=== PATIENT | female | born 1985 | race Caucasian/White ===

== ENCOUNTER 2019-05-24 20:36 | Emergency (ER) | payer BC ==
--- NOTE | 2019-05-24 23:32 | EDM.PDOC ---
ED HPI GENERAL MEDICAL PROBLEM - General Chief Complaint: Gastrointestinal Problem Stated Complaint: vomiting Time Seen by Provider: 05/24/19 23:10 Source of Information: Reports: Patient, Family History Limitations: Reports: No Limitations - History of Present Illness INITIAL COMMENTS - FREE TEXT/NARRATIVE: This is a 34yo F here for profuse vomiting. She notes it started while eating at about 6 pm when she started to salivate a lot then vomit. The only different foods eaten was cottage cheese and beets compared to her dad. She has had prior similar happenings without vomiting but more epigastric symptoms that are relieved by rolaids. This episode has been the worse and has not resolved with is very unlike any other episodes. Onset: Sudden Duration: Hour(s): Location: Reports: Chest, Abdomen Quality: Reports: Ache Severity: Moderate Improves with: Reports: None Worsens with: Reports: Eating Associated Symptoms: Reports: Nausea/Vomiting Past Medical History HEENT History: Reports: Other (See Below) Other HEENT History: both eyes Respiratory History: Reports: Asthma - Past Surgical History HEENT Surgical History: Reports: Laser Surgery Respiratory Surgical History: Reports: None Social & Family History - Tobacco Use Smoking Status *Q: Never Smoker Second Hand Smoke Exposure: No - Caffeine Use Caffeine Use: Reports: None - Recreational Drug Use Recreational Drug Use: No ED ROS GENERAL - Review of Systems Review Of Systems: Comprehensive ROS is negative, except as noted in HPI. ED EXAM, GENERAL - Physical Exam Exam: See Below Exam Limited By: No Limitations General Appearance: Alert, WD/WN, Mild Distress Eye Exam: Bilateral Eye: EOMI, Nystagmus, PERRL Ears: Normal External Exam Nose: Normal Inspection Throat/Mouth: Normal Inspection Head: Atraumatic, Normocephalic Neck: Normal Inspection, Supple, Non-Tender Respiratory/Chest: No Respiratory Distress, Lungs Clear Cardiovascular: Normal Peripheral Pulses, Regular Rate, Rhythm Peripheral Pulses: 2+: Dorsalis Pedis (L), Dorsalis Pedis (R) GI/Abdominal: Abnormal Bowel Sounds (hyperactive) Extremities: Normal Inspection Neurological: Alert, Oriented, CN II-XII Intact Course - Vital Signs Last Recorded V/S: Last Vital Signs Temp 35.8 C 05/24/19 22:58 Pulse 18 L 05/24/19 22:58 Resp 18 05/24/19 22:58 BP 128/67 05/24/19 22:58 Pulse Ox 100 05/24/19 22:58 - Orders/Labs/Meds Orders: Active Orders 24 hr Category Date Time Status EKG Documentation Completion [RC] ASDIRECTED Care 05/24/19 23:22 Active Labs: Laboratory Tests 05/24/19 05/24/19 Range/Units 11:35 11:35 WBC 15.9 H (4.0-11.0) K/uL RBC 4.41 (3.80-5.80) M/uL Hgb 12.1 (11.5-16.5) g/dL Hct 36.3 L (37.0-47.0) % MCV 82 (76-96) fL MCH 27.4 (27.0-32.0) pg MCHC 33.3 (31.0-35.0) g/dL RDW 14.8 (11.0-16.0) % Plt Count 352 (150-500) K/uL MPV 9.5 (6.0-10.0) fL Neut % (Auto) 67.3 (45.0-70.0) % Lymph % (Auto) 22.8 (20.0-40.0) % Wake % (Auto) 6.5 (3.0-10.0) % Eos % (Auto) 3.1 (1.0-5.0) % Baso % (Auto) 0.3 (0.0-0.5) % Neut # (Auto) 10.71 H (2.00-7.50) K/uL Lymph # (Auto) 3.62 (1.50-4.00) K/uL Wake # (Auto) 1.03 H (0.20-0.80) K/uL Eos # (Auto) 0.50 H (0.04-0.40) K/uL Baso # (Auto) 0.05 (0.02-0.10) K/uL Sodium 142 (136-145) mmol/L Potassium 3.7 (3.5-5.1) mmol/L Chloride 102 (98-107) mmol/L Carbon Dioxide 24.0 (21.0-32.0) mmol/L Anion Gap 19.7 H (5.0-15.0) mmol/L BUN 11 (8-26) mg/dL Creatinine 0.82 (0.55-1.02) mg/dL Est Cr Clr Drug Dosing TNP Estimated GFR (MDRD) > 60 (>60) MLS/MIN BUN/Creatinine Ratio 13.4 (6-25) Glucose 102 H (74-100) mg/dL Calcium 8.5 (8.5-10.1) mg/dL Total Bilirubin 0.5 (0.0-1.0) mg/dL AST 16 (15-37) U/L ALT 19 (12-78) U/L Alkaline Phosphatase 72 (46-116) U/L Troponin I 0.002 (0.000-0.060) ng/mL Total Protein 7.3 (6.4-8.2) g/dL Albumin 3.5 (3.4-5.0) g/dL Globulin 3.8 (2.2-4.2) g/dL Albumin/Globulin Ratio 0.9 (0.8-2.0) Meds: Medications Discontinued Medications Generic Name Dose Route Start Last Admin Trade Name Freq PRN Reason Stop Dose Admin Diatrizoate Meglum/Diatrizoate Sod 30 ml 05/24/19 23:45 Gastrografin 37% PO 05/25/19 00:08 . DIRECTED JUDSON Departure - Departure Time of Disposition: 00:40 Disposition: Home, Self-Care 01 Condition: Undetermined Clinical Impression: Esophageal obstruction due to food impaction - Discharge Information Instructions: Viral Gastroenteritis, Adult, [id number] Referrals: PCP,None [Primary Care Provider] - Forms: ED Department Discharge Sepsis Event Note - Evaluation Sepsis Screening Result: No Definite Risk - Focused Exam Vital Signs: Vital Signs Temp Pulse Resp BP Pulse Ox 05/24/19 22:58 35.8 C 18 L 18 128/67 100 Date Exam was Performed: 05/25/19 Time Exam was Performed: 10:30 - Problem List & Annotations (1) Esophageal obstruction due to food impaction SNOMED Code(s): 027167783 Code(s): K22.2 - ESOPHAGEAL OBSTRUCTION; T18.128A - FOOD IN ESOPHAGUS CAUSING OTHER INJURY, INITIAL ENCOUNTER Status: Acute Priority: High - Problem List Review Problem List Initiated/Reviewed/Updated: Yes - My Orders Last 24 Hours: My Active Orders 05/24/19 23:22 EKG Documentation Completion [RC] ASDIRECTED - Assessment/Plan Last 24 Hours: My Active Orders 05/24/19 23:22 EKG Documentation Completion [RC] ASDIRECTED Plan: Discussed in length on obstruction of the esophagus close to the GE junction. Discussed supportive/conservative therapy and mother and patient would like to try this overnight prior to going to a center for GI and removal as well as preventing late night driving. Patient and family counseled on the need for Endoscopy and removal if symptoms do not improve and resolve and family understands the risks of waiting for this procedure. Discussed very close monitoring and f/u in ER as needed and for further management as directed. Family have decided for [facility] if they were to go for further intervention. They will rest tonight and leave in the am if symptoms persist.
[2019-05-24] MEDS ORDERED: Diatrizoate Meglumine/Diatrizoate Sodium 37% 30 ML Bottle PO SCH (23:45)
--- NOTE | 2019-05-25 09:27 | CT ---
Date of Service: 05/24/19 Clinical Data: shortness of breath, chest pressure UNENHANCED CHEST CT: Multislice acquisition through the chest without IV contrast was performed. No priors. The lungs are clear. No pneumothorax. No pleural effusions. The heart size is normal. No pericardial effusion. No hilar or mediastinal adenopathy. There is heterogeneous soft tissue dense material within the distal esophagus just proximal to the GE junction. The esophagus proximal to this is distended. It does contain some contrast density material as well as fluid and gas. Distal impacted esophagus with obstruction is suspected. No other significant findings. IMPRESSION: Abnormal esophagus. See above. [id number] [facility]
--- NOTE | 2019-05-25 09:33 | CT ---
Date of Service: 05/24/19 Clinical Shashi: epigastric pressure UNENHANCED ABDOMEN AND PELVIC CT: Multislice acquisition through the abdomen and pelvis without IV or oral contrast was performed. No priors. Again noted is the heterogeneous soft tissue density material in the distal esophagus at the GE junction with dilatation of the esophagus proximally consistent with an impacted, obstructed distal esophagus. The liver appears normal. The gallbladder appears normal. The spleen appears normal. The pancreas appears normal. The right and left adrenals appear normal. The right and left kidneys appear normal. No nephrocalcinosis or nephrolithiasis. No hydronephrosis or hydroureter. The bladder is partially fluid-filled. It appears normal. No evidence of appendicitis. There is a moderate amount of stool present in the ascending and transverse colon. No free air. No free fluid. No dilated loops of bowel. No adenopathy. No aortic aneurysm. [id number] [facility]
== END 2019-05-25 00:50 | disposition home or self-care (01) ==
LOC: LB.ED 20:36
DX: T18.128A Food in esophagus causing other injury, initial encounter (principal); K22.2 Esophageal obstruction
CPT/HCPCS: 36415; 71250; 74150; 80053; 84484; 85025; 93005; 99284-25; Q9963

== ENCOUNTER 2019-06-15 09:53 | Day surgery (SDC) | payer BC ==
[2019-06-15] MEDS ORDERED: Sodium Chloride 0.9% 1,000 ML IV SCH (10:30)
[2019-06-15] MEDS ORDERED: Propofol 200 MG/20 ML SDV ONE (12:20)
--- NOTE | 2019-06-15 17:32 | OR ---
DATE OF OPERATION: 06/15/2019 SURGEON: Yosvany Knox MD POSTOPERATIVE DIAGNOSIS: Dysphagia. POSTOPERATIVE DIAGNOSIS: Dysphagia. PROCEDURE: EGD. ANESTHESIA: MAC. ESTIMATED BLOOD LOSS: None. COMPLICATIONS: None. INDICATION FOR THE PROCEDURE: The patient is a 34-year-old female, who several weeks ago got a piece of steak stuck in her esophagus and did resolve on its own after taking some meat tenderizer. Did not require any EGD at that time. She is here today for EGD. Also apparently had a CT scan showing a small hiatal hernia. DESCRIPTION OF PROCEDURE: Informed consent was obtained from the patient. The patient was taken to the operating room and placed on table in left lateral decubitus position. Monitored anesthesia care was administered. The Esophagogastroscope then advanced through the oral cavity and directed towards the stomach, did reach the gastric antrum. The patient was coughing and vomiting up gastric fluid, so procedure was truncated, but otherwise stomach appeared unremarkable. Her esophagus was unremarkable. She did have a small sliding hiatal hernia. Otherwise, the esophagus showed no strictures, no masses, no areas of inflammation throughout the esophagus. Esophagogastroscope then withdrawn. FINDINGS: Small hiatal hernia. No esophageal strictures or masses. RECOMMENDATIONS: If she does have persistent GERD or heartburn, would recommend starting PPI. Otherwise, would recommend small bites and chewing food well in the future. AGUSTO/JENNIFER /[id number]
== END 2019-06-15 14:00 | disposition home or self-care (01) ==
LOC: LB.SDS 09:53
PROVIDERS: ATTEND Surgery
DX: K44.9 Diaphragmatic hernia without obstruction or gangrene (principal)
CPT/HCPCS: 43239; 43246; J2704; J7030

== ENCOUNTER 2020-11-25 21:28 | Emergency (ER) | payer BC, MEDICAID ==
[~2020-11-25 21:28] MED LIST: Ciprofloxacin 500 MG Tab ONE
[2020-11-25] MEDS: GI Cocktail Oral Solution 30 ML PO ONE (21:55)
[2020-11-25] MEDS: Ketorolac 60 MG/2 ML SDV IM ONE (22:03)
--- NOTE | 2020-11-26 00:02 | ER ---
HISTORY OF PRESENT ILLNESS: A 35-year-old lady here with complaints of abdominal pain involving the epigastric area and radiating around to the right side of the upper abdomen and radiates around almost to the back area. She states it has been present for 2 or 3 days but it got worse today. She rates her pain at 9/10 or 10/10. The patient has not been nauseated. She has not been vomiting. She has not been running a fever. She has not taken any [id number] pain medication. She denies any problems with dysuria, hematuria, or diarrhea. The patient states she just thought she should come in to make sure there was nothing wrong. OBJECTIVE: GENERAL APPEARANCE: The patient is awake and alert. She appears comfortable. She is talking freely. She is not in any respiratory distress. VITAL SIGNS: Reviewed. She is afebrile. Blood pressure 134/89, O2 sats 100%, respirations 16, pulse 83. LUNGS: Clear to auscultation. CARDIAC: Heart sounds distinct without murmurs. ABDOMEN: Soft. Minimal discomfort in the upper right quadrant with palpation. There is no discomfort in the lower quadrants with palpation. Bowel sounds are present. SKIN: Warm and dry. LABORATORY DATA AND X-RAY: CBC shows a white count of 17,600, neutrophils are also elevated. CMP is mostly unremarkable. UA shows a few wbc's and occasional bacteria. CT of the abdomen and pelvis was obtained showing the gallbladder griggs are thickened consistent with cystitis without any other acute findings. DIAGNOSIS: Abdominal pain with mild cystitis found on CT. TREATMENT PLAN: The patient was given Toradol 60 mg IM and a GI cocktail 30 mL while waiting for test results. This did help with her pain. I will put her on Cipro 500 mg b.i.d. for 3 days. She is to take Tylenol alternating with ibuprofen as needed for pain control at home. Push fluids and follow up is as needed. CRS/MODL /[id number]
--- NOTE | 2020-11-26 12:35 | CT ---
Date of Service: ;11/25/20 Clinical Data: URQ ABD pain x 3 days. UNENHANCED ABDOMEN AND PELVIC CT: Multislice acquisition through the abdomen and pelvis without IV or oral contrast was performed. Comparison is made to a prior exam dated 05/24/19. The lung bases are clear. The heart size is normal. There is gas noted in the distal esophagus most likely due to GE reflux. The unenhanced liver appears normal. No focal hepatic lesions. The gallbladder is contracted. No calcified gallstones. No pericholecystic fluid. The spleen appears normal. The pancreas appears normal. The right and left adrenals appear normal. The right and left kidneys appear normal. No nephrocalcinosis or nephrolithiasis. No hydronephrosis or hydroureter. There is a small amount of fluid within the bladder. There is apparent diffuse bladder wall thickening. This is probably related to nondistention. Cystitis should be considered. There are low-density lesions in both ovaries consistent with bilateral ovarian cysts. The appendix is not clearly seen. No evidence of appendicitis. There is a moderate amount of stool noted within the cecum and ascending colon. No free air. No free fluid. No dilated loops of bowel. No adenopathy. No aortic aneurysm. There is a small fat-containing umbilical hernia. No other significant findings. [id number] [facility]
== END 2020-11-25 21:35 | disposition home or self-care (01) ==
LOC: LB.ED 21:28
DX: N30.90 Cystitis, unspecified without hematuria (principal)
CPT/HCPCS: 36415; 74176; 80053; 81001; 85025; 96372; 99283; 99284-25; A9270-GY; J1885